=== PATIENT | male | born 1950 | race Caucasian/White ===

== ENCOUNTER → 2016-12-19 | Outpatient (CLI) | payer OTHER, MEDICARE | LOC: CIMAGING 12:15 | PROVIDERS: ATTEND Family Medicine | DX: R05 Cough (principal) | CPT/HCPCS: 71020-PO ==

== ENCOUNTER 2017-09-08 07:12 | Emergency (ER) | payer OTHER, MEDICARE ==
--- NOTE | 2017-09-08 07:19 | CPEKG ---
Heart Rate: 73 RR Interval: 822 P-R Interval: 148 QRSD Interval: 86 QT Interval: 380 QTC Interval: 419 P [place]: 146 QRS [place]: 143 T Wave [place]: 140 EKG Severity - ABNORMAL ECG - EKG Impression: SINUS OR ECTOPIC ATRIAL RHYTHM EKG Impression: LATERAL INFARCT, AGE INDETERMINATE Electronically Signed By: Errol Gonzalez 08-Sep-2017 14:52:47
[2017-09-08 07:28] LABS: PLATELET COUNT 178 10^3/uL (150-400)
--- NOTE | 2017-09-08 07:31 | EDPHY ---
H & P Time Seen by Provider: 09/08/17 07:19 HPI/ROS: HPI Fainting. 67-year-old male from up stairs. He was with his in a hospital room. His is getting hip surgery. He was waiting with her prior to her going to surgery. He was sitting. He stood up to go to the bathroom. He got out into the hallway and felt clammy and lightheaded and nauseous. A bystander asked him how he was feeling. He said to this person not well and then had a syncopal event. There was initially report the patient hit his head on the wall as he went to the ground. The patient denies any headache or head pain. He tells me he does not think he hit his head. He has had no associated headache, palpitations, chest pain, shortness of breath. Denies any neck pain. No changes in vision. No loss of sensation or weakness in his extremities. No other complaints. He stated that he did have a small amount of cereal for breakfast earlier this morning. ROS: Constitutional: No fever, no chills. As above. Eyes: No discharge. No changes in vision. ENT: No sore throat. No nasal congestion or rhinorrhea. Respiratory: No cough. No shortness of breath. Cardiac: No chest pain, no palpitations. Gastrointestinal: No abdominal pain, no vomiting, no diarrhea. As above. Genitourinary: No hematuria. No dysuria or increased frequency with urination. Musculoskeletal: No back pain. No neck pain. No extremity pain. Skin: No rashes. Neurological: No headache. No focal weakness or altered sensation. Past medical history: Migraine headaches he has been seen at the [facility] for evaluation of his migraine headaches. Vague history of vagal nerve hyperactivity, GERD. Social history: Nonsmoker. Denies drugs or alcohol. . As above. Physical Exam: General Appearance: Alert, no distress. This patient is responding to questions appropriately and in full sentences. This patient appears well- hydrated and well-nourished. Head: Normocephalic atraumatic. Eyes: Pupils equal and round and reactive to light at 3-2 mm bilaterally, no pallor or injection. No lid edema, erythema or injection. No nystagmus. No photophobia. ENT, Mouth: Mucous membranes are moist. The pharyngeal tissues are unremarkable. No edema or swelling. No asymmetry suggestive of abscess. No erythema or exudates. No tongue lacerations or abrasions. Facial bones are stable and nontender on palpation. Respiratory: There are no retractions, lungs are clear to auscultation with good air movement bilaterally. Cardiovascular: Regular rate and rhythm. No murmur. Gastrointestinal: Abdomen is soft and nontender, no masses, bowel sounds normal. No focal tenderness at McBurney's point. No Campbell sign. Neurological: Motor sensory function is grossly intact. Cranial nerves are normal. Speech is normal. Cerebellar function is normal. Gait is normal. Skin: Warm and dry, no rashes. Musculoskeletal: Neck is supple and nontender. No midline cervical, thoracic, lumbar tenderness on palpation. No pain on flexion of the neck. No suboccipital tenderness on palpation. Extremities are symmetrical. All joints range without pain or impingement. Psychiatric: No agitation. No depression. Database: EKG: EKG time is 7:18 a.m.; EKG shows a narrow complex normal sinus rhythm with a ventricular rate of 73. The MI, QRS, QT intervals are within normal limits. There are no ST-T wave changes indicative of ischemic or injury pattern. No evidence of right heart strain. No evidence of Brugada syndrome, WPW, hypertrophic cardiomyopathy. Interpreted by me. Imaging: Procedures: Emergency department course: Vital signs reviewed and are normal. Pulse oximetry 96% on room air. IV placed. He will be given 500 cc of IV normal saline. EKG obtained and reviewed by myself. 8:30 a.m., patient re-evaluated. Resting comfortably at this time. Denies any complaints. pvc monitor shows a narrow complex normal sinus rhythm with ventricular rate of 80. Blood pressure is 120/70. Repeat neurologic Assessment is nonfocal. Patient is requesting discharge at this time. Patient's presentation is consistent with a vasovagal type syncopal event. Cardiac etiology unlikely. Results of his emergency department workup discussed with him. Follow-up and return to emergency department precautions reviewed. He is up and ambulatory on his own with a normal gait. All of his questions were answered. He was discharged from the emergency department in good condition. Differential Diagnosis: The differential diagnosis on this patient includes but is not limited to vasovagal syncope, noncardiac syncope. Arrhythmia, acute coronary syndrome, pulmonary embolism, subarachnoid hemorrhage, AAA, CVA unlikely. This represents a partial list of diagnoses considered. These considerations are based on history, physical exam, past history, reassessment and diagnostic testing. Smoking Status: Never smoked Constitutional: Initial Vital Signs Temperature (C) 36.5 C 09/08/17 07:13 Heart Rate 68 09/08/17 07:13 Respiratory Rate 16 09/08/17 07:13 Blood Pressure 118/70 09/08/17 07:13 O2 Sat (%) 87 L 09/08/17 07:13 O2 Delivery Mode Room Air Allergies/Adverse Reactions: No Known Allergies Allergy (Unverified 07/23/09 22:51) Home Medications: Medication Instructions Recorded Nortriptyline HCl 07/23/09 Amitriptyline Dose k 12/30/11 Azithromycin [Zithromax 250 mg 250 mg PO DAILY #6 tab 12/30/11 tab(RX)] Cardene Dose Unk 12/30/11 Protonix Dose k 12/30/11 oxyCODONE/APAP 5/325 [Percocet 1 tab PO Q4-6PRN PRN #20 tab 12/30/11 5/325 (*)] Medical Decision Making - Data Points Laboratory Results: Laboratory Results 09/08/17 07:20 09/08/17 07:20 09/08/17 09/08/17 07:20 07:20 WBC 6.77 10^3/uL 10^3/uL (3.80-9.50) RBC 5.38 10^6/uL 10^6/uL (4.40-6.38) Hgb 16.4 g/dL g/dL (13.7-17.5) Hct 47.8 % % (40.0-51.0) MCV 88.8 fL fL (81.5-99.8) MCH 30.5 pg pg (27.9-34.1) MCHC 34.3 g/dL g/dL (32.4-36.7) RDW 13.7 % % (11.5-15.2) Plt Count 178 10^3/uL 10^3/uL (150-400) MPV 9.8 fL fL (8.7-11.7) Neut % (Auto) 54.7 % % (39.3-74.2) Lymph % (Auto) 29.1 % % (15.0-45.0) Clare % (Auto) 12.6 % % (4.5-13.0) Eos % (Auto) 3.0 % % (0.6-7.6) Baso % (Auto) 0.3 % % (0.3-1.7) Nucleat RBC Rel Count 0.0 % % (0.0-0.2) Absolute Neuts (auto) 3.71 10^3/uL 10^3/uL (1.70-6.50) Absolute Lymphs (auto) 1.97 10^3/uL 10^3/uL (1.00-3.00) Absolute Monos (auto) 0.85 10^3/uL H 10^3/uL (0.30-0.80) Absolute Eos (auto) 0.20 10^3/uL 10^3/uL (0.03-0.40) Absolute Basos (auto) 0.02 10^3/uL 10^3/uL (0.02-0.10) Absolute Nucleated RBC 0.00 10^3/uL 10^3/uL (0-0.01) Immature Gran % 0.3 % % (0.0-1.1) Immature Gran # 0.02 10^3/uL 10^3/uL (0.00-0.10) Sodium 142 mEq/L mEq/L (135-145) Potassium 3.6 mEq/L mEq/L (3.5-5.2) Chloride 104 mEq/L mEq/L (97-110) Carbon Dioxide 25 mEq/l mEq/l (22-31) Anion Gap 13 mEq/L mEq/L (8-16) BUN 22 mg/dL mg/dL (7-23) Creatinine 1.3 mg/dL mg/dL (0.7-1.3) Estimated GFR 55 Glucose 127 mg/dL H mg/dL (70-100) Calcium 8.8 mg/dL mg/dL (8.5-10.4) Medications Given: Discontinued Medications Sodium Chloride (Ns) 500 mls @ 1,500 mls/hr IV ONCE ONE Stop: 09/08/17 07:51 Last Admin: 09/08/17 07:32 Dose: 500 mls Departure - Departure Disposition: Home, Routine, Self-Care Clinical Impression: Syncope Condition: Good Instructions: Syncope (ED) Additional Instructions: Read and follow provided instructions. Follow-up with your primary care physician in 1-2 days for re-evaluation. No strenuous activity until you have been cleared by her primary care physician. Keep well hydrated. Return to the emergency department for fainting, chest pain, palpitations, loss of sensation or weakness in your extremities or other serious concerns.
[2017-09-08] MEDS ORDERED: NS 500 ML IV ONE (07:32)
[2017-09-08 08:55] VITALS: BP 120/70
== END 2017-09-08 08:55 | disposition home or self-care (01) ==
DX: R55 Syncope and collapse (principal)

== ENCOUNTER → 2018-08-29 | Outpatient (CLI) | payer OTHER, MEDICARE | LOC: FIMAGING 14:34 | PROVIDERS: ATTEND Orthopaedic Surgery | DX: S46.002A Unspecified injury of muscle(s) and tendon(s) of the rotator cuff of left shoulder, initial encounter (principal); M75.42 Impingement syndrome of left shoulder; M71.9 Bursopathy, unspecified ==

== ENCOUNTER → 2018-10-26 | Outpatient (CLI) | payer OTHER, MEDICARE | LOC: FIMAGING 09:49 ==

== ENCOUNTER → 2018-10-28 | Outpatient (CLI) | payer OTHER, MEDICARE | LOC: FIMAGING 08:52 ==